=== PATIENT | male | born 1995 | race Caucasian/White ===

== ENCOUNTER 2016-11-13 14:41 | Emergency (ER) | payer SELFPAY ==
[~2016-11-13] VITALS: Ht 175.3 cm; Wt 106.6 kg
[2016-11-13 14:41] VITALS: BP 127/72
--- NOTE | 2016-11-13 14:48 | Emergency Room Report ---
History of Present Illness General Chief Complaint: Seizure Source: Patient, Family Member Present Illness HPI 21YOM BIBEMS with witnessed seizure. Atraumatic. Bit left side of tongue, no active bleeding. Compliant with Keppra 500mg BID. Took this morning. Last seizure May 2016 - 6 months ago. Allergies: Coded Allergies: No Known Allergies (Unverified , 11/13/16) Patient History Past Medical History: seizures Past Surgical History: none Pertinent Family History: none Social History: Denies: alcohol use, drug use, smoking Immunizations: UTD Reviewed Nursing Documentation: PMH: Agreed, PSxH: Agreed Nursing Documentation-PMH Past Medical History: No History, Except For Hx Seizures: Yes - May 2016 Review of Systems All Other Systems: negative except mentioned in HPI Physical Exam Vital Signs Date Time Temp Pulse Resp B/P Pulse Ox O2 Delivery O2 Flow Rate FiO2 11/13/16 14:37 97.9 101 19 138/64 100 Room Air Sp02 EP Interpretation: reviewed, normal General Appearance: normal inspection, well appearing, no apparent distress, alert, GCS 15, non-toxic, Postictal Head: normocephalic, atraumatic Eyes: bilateral eye EOMI, bilateral eye PERRL ENT: normal ENT inspection, hearing grossly normal, normal voice, other - punctate abrasion to left side of tongue, no active bleeding Neck: normal inspection, full range of motion, supple, no bony tend Respiratory: normal inspection, lungs clear, normal breath sounds, no respiratory distress, no retraction, no wheezing Cardiovascular #1: regular rate, rhythm, no edema Gastrointestinal: normal inspection, normal bowel sounds, non tender, soft, no guarding, no hernia Genitourinary: no CVA tenderness Musculoskeletal: normal inspection, back normal, normal range of motion, Rene' s Sign negative Neurologic: normal inspection, alert, oriented x3, responsive, residential monitor III-XII nml as tested, motor strength/tone normal, speech normal Psychiatric: normal inspection, judgement/insight normal, mood/affect normal Skin: normal inspection, normal color, no rash Lymphatic: normal inspection Medical Decision Making Diagnostic Impression: Primary Impression: Seizure disorder ER Course Seizure disorder with breakthru seizure. Compliant with Keppra PM dose given in ED Obsered without additional seizure here DC home Last Vital Signs Date Time Temp Pulse Resp B/P Pulse Ox O2 Delivery O2 Flow Rate FiO2 11/13/16 14:37 97.9 101 19 138/64 100 Room Air Status: improved Disposition: HOME, SELF-CARE DONALD SIMMONS M.D. Nov 13, 2016 14:48
[2016-11-13 17:10] VITALS: BP 125/61
== END 2016-11-13 17:10 | disposition home or self-care (01) ==
LOC: EDBD 14:41 → EMR 14:54
DX: G40.909 Epilepsy, unspecified, not intractable, without status epilepticus (principal); Z79.899 Other long term (current) drug therapy
CPT/HCPCS: 80299; 99283